=== PATIENT | female | born 1970 | race Asian ===

== ENCOUNTER 2021-07-31 10:03 | Emergency (ER) | payer MEDICAID ==
[~2021-07-31] VITALS: Ht 160 cm; Wt 59.0 kg
[2021-07-31 10:29] VITALS: BP_SYST 138
--- NOTE | 2021-07-31 10:29 | NUR ---
Placed in room 6 . Placed on monitor car operator, blood pressure machine and pulse oximeter. To gown for exam. Side rails up. Report given to JES MIRANDA.
--- NOTE | 2021-07-31 10:35 | NUR ---
PT BIB SON FROM HOME C/O ABDOMINAL PA. PAIN LEVEL 10. 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 PMH RECENT HEMMORRHOID SURGERY
--- NOTE | 2021-07-31 10:40 | NUR ---
ER at bedside examining patient.
[2021-07-31] MEDS ORDERED: ONDANSETRON HCL 4 MG/2 ML VIAL IVP ONE (10:45)
[2021-07-31] MEDS ORDERED: MORPHINE 4 MG INJ. 4 MG/ML VIAL IVP ONE (10:45)
[2021-07-31] MEDS ORDERED: NACL 0.9% 1,000 ML IV ONE (10:45)
--- NOTE | 2021-07-31 11:03 | NUR ---
Patient transported to radiology via GURNEY, accompanied by STAFF.
--- NOTE | 2021-07-31 11:14 | NUR ---
Blood for labwork drawn from [facility]. Patient tolerated WELL.
--- NOTE | 2021-07-31 11:15 | NUR ---
XRAY BARREL FINISHER WITH PATIENT TO LAB.
[2021-07-31 11:28] LABS: BASOPHILS % (AUTO) 0.2 % (0.0-2.0); EOSINOPHILS # (AUTO) 0.1 K/uL (0.0-0.4); EOSINOPHILS % (AUTO) 0.7 % (0.0-4.0); HEMATOCRIT 38.9 % (36-48); HEMOGLOBIN 12.7 g/dL (12.0-16.0); LYMPHOCYTES # (AUTO) 1.8 K/uL (1.0-5.5); LYMPHOCYTES % (AUTO) 21.5 % (20.5-51.5); MEAN CORPUSCULAR HEMOGLOBIN 31 pg (27-31); MEAN CORPUSCULAR HGB CONC 33 % (32-36); MEAN CORPUSCULAR VOLUME 95 fL (79.0-98.0); MONOCYTES # (AUTO) 0.4 K/uL (0.0-1.0); MONOCYTES % (AUTO) 4.8 % (1.7-9.3); NEUTROPHILS % (AUTO) 72.8 % (40.0-70.0); PLATELET COUNT (AUTO) 131 K/uL (130-430); RED BLOOD CELL COUNT(AUTO) 4.11 MIL/uL (4.2-6.2); RED CELL DISTRIBUTION WIDTH 13.5 % (9.0-15.0); WHITE BLOOD COUNT (AUTO) 8.2 K/uL (4.8-10.8)
[2021-07-31 11:47] LABS: CALCIUM 7.9 mg/dL (8.4-11.0); CREATININE 0.7 mg/dL (0.55-1.30); POTASSIUM 3.2 mmol/L (3.5-5.1)
--- NOTE | 2021-07-31 11:58 | NUR ---
pt comfortable no complaints vss. daughter at bedside.
[2021-07-31] MEDS ORDERED: POTASSIUM CHLORIDE 20 MEQ TAB.PRT.SR PO ONE (12:30)
[2021-07-31 12:49] LABS: ALBUMIN 3.1 g/dL (3.4-4.8); TOTAL BILIRUBIN 0.5 mg/dL (0.0-1.0)
[2021-07-31] MEDS ORDERED: DOCU-144 PO (13:07)
[2021-07-31] MEDS ORDERED: DICY10CA13 PO (13:07)
[2021-07-31 13:28] VITALS: BP_SYST 128
== END 2021-07-31 13:28 | disposition home or self-care (01) ==
LOC: SED 10:03
DX: R10.9 Unspecified abdominal pain (principal); Z88.6 Allergy status to analgesic agent
CPT/HCPCS: 36415; 74176; 76376; 80053; 83690; 85025; 96361; 96374; 96375; 99284; J2270; J2405; J7030

== ENCOUNTER 2022-03-02 19:53 | Emergency (ER) | payer MEDICAID ==
[~2022-03-02] VITALS: Ht 160 cm; Wt 60.8 kg
[~2022-03-02 19:53] MED LIST: DICY10CA13 PO; DOCU-144 PO
[2022-03-02 20:00] VITALS: BP_SYST 110
--- NOTE | 2022-03-02 21:16 | NUR ---
Patient to ER bed 06 to gown for evaluation. Side rails up.
--- NOTE | 2022-03-02 21:48 | NUR ---
PT BIB SON AWAKE AND ALERT AOX4. NO SOB. PT C/O HEADACHE SINCE YESTERDAY. PT DENIES N/V. PT STATES PAIN CAN BE 10/10.
--- NOTE | 2022-03-02 21:49 | NUR ---
MD DR TURNER AT BEDSIDE
[2022-03-02] MEDS ORDERED: DIPHENHYDRAMINE INJ 50 MG/ML VIAL IVP ONE (22:15)
[2022-03-02] MEDS ORDERED: KETOROLAC TROMETHAMINE 15 MG VIAL IVP ONE (22:15)
[2022-03-02] MEDS ORDERED: PROCHLORPERAZINE EDISYLATE 10 MG/2 ML VIAL IVP ONE (22:15)
--- NOTE | 2022-03-02 22:22 | NUR ---
REPORT GIVEN TO KASSI FRANCISCO. PT IN STABLE CONDITION VSS.
--- NOTE | 2022-03-02 22:47 | NUR ---
# 18 gauge angiocath placed to R AC. Use of asceptic technique. Opsite placed over site. Blood return noted. Flushed with 10 cc of normal saline. No evidence of infiltration noted. Patient tolerated well.
[2022-03-03 00:18] VITALS: BP_SYST 110
[2022-03-04] MEDS ORDERED: BENZ1LOZ73 PO (21:45)
[2022-03-04] MEDS ORDERED: BUTA1CAP43 PO (21:45)
== END 2022-03-03 00:18 | disposition home or self-care (01) ==
LOC: SED 19:53
DX: R51.9 Headache, unspecified (principal); E78.00 Pure hypercholesterolemia, unspecified; Z88.6 Allergy status to analgesic agent; Z79.899 Other long term (current) drug therapy
CPT/HCPCS: 99284; 96374; 96375; J1200; J1885; J0780

== ENCOUNTER 2022-03-04 17:54 | Emergency (ER) | payer MEDICAID ==
[~2022-03-04] VITALS: Ht 160 cm; Wt 61.7 kg
[2022-03-04 18:08] VITALS: BP_SYST 125
[2022-03-04] MEDS ORDERED: PROCHLORPERAZINE EDISYLATE 10 MG/2 ML VIAL IVP ONE (19:45)
[2022-03-04] MEDS ORDERED: DIPHENHYDRAMINE INJ 50 MG/ML VIAL IVP ONE (19:45)
[2022-03-04] MEDS ORDERED: NACL 0.9% 1,000 ML IV ONE (19:45)
[2022-03-04] MEDS ORDERED: KETOROLAC TROMETHAMINE 15 MG VIAL IVP ONE (19:45)
[2022-03-04 20:10] LABS: ANION GAP 8 (5-15); CALCIUM 8.9 mg/dL (8.4-11.0); CHLORIDE 103 mmol/L (98-107); GLUCOSE 108 mg/dL (70-99); UREA NITROGEN, BLOOD 10 mg/dL (8-21)
[2022-03-04 20:19] LABS: ALANINE AMINOTRANSFERASE 12 U/L (12-78); ALBUMIN 3.7 g/dL (3.4-4.8); ASPARTATE AMINOTRANSFERASE 24 U/L (10-37); TOTAL BILIRUBIN 0.4 mg/dL (0.0-1.0)
[2022-03-04 20:21] LABS: HEMOGLOBIN 13.3 g/dL (12.0-16.0); WHITE BLOOD COUNT (AUTO) 4.3 K/uL (4.8-10.8)
[2022-03-04 20:25] LABS: GFR AFRICAN AMERICAN 113 mL/min (>90)
[2022-03-04 20:28] LABS: BASOPHILS % (AUTO) 0.4 % (0.0-2.0); HEMATOCRIT 38.4 % (36-48); LYMPHOCYTES # (AUTO) 1.5 K/uL (1.0-5.5); LYMPHOCYTES % (AUTO) 34.7 % (20.5-51.5); MEAN CORPUSCULAR HEMOGLOBIN 32 pg (27-31); MEAN CORPUSCULAR HGB CONC 35 % (32-36); MEAN CORPUSCULAR VOLUME 93 fL (79.0-98.0); MONOCYTES # (AUTO) 0.4 K/uL (0.0-1.0); MONOCYTES % (AUTO) 9.7 % (1.7-9.3); NEUTROPHILS # (AUTO) 2.4 K/uL (1.8-7.7); NEUTROPHILS % (AUTO) 55.2 % (40.0-70.0); PLATELET COUNT (AUTO) 114 K/uL (130-430); RED BLOOD CELL COUNT(AUTO) 4.15 MIL/uL (4.2-6.2); RED CELL DISTRIBUTION WIDTH 13.3 % (9.0-15.0)
[2022-03-04] MEDS ORDERED: BUTA1CAP43 PO (21:45)
[2022-03-04] MEDS ORDERED: BENZ1LOZ73 PO (21:45)
[2022-03-04 22:34] VITALS: BP_SYST 112
== END 2022-03-04 22:34 | disposition home or self-care (01) ==
LOC: SED 17:54
DX: U07.1 COVID-19 (principal); G43.909 Migraine, unspecified, not intractable, without status migrainosus; R05.9 Cough, unspecified; R06.02 Shortness of breath; E78.00 Pure hypercholesterolemia, unspecified; Z88.6 Allergy status to analgesic agent; Z79.899 Other long term (current) drug therapy
CPT/HCPCS: 99285; 96374; 70450; 71045; 96375; 96361; 87426; 80053; 85025; 84484; 36415; 93005; 76376; J1200; J1885; J0780; J7030

== ENCOUNTER 2023-05-08 09:24 | Emergency (ER) | payer MEDICAID ==
[~2023-05-08] VITALS: Ht 160 cm; Wt 62.6 kg
[~2023-05-08 09:24] MED LIST changes: +BENZ1LOZ73 PO; +BUTA1CAP43 PO; +DICY-14 PO; -DICY10CA13 PO
[2023-05-08 09:30] VITALS: BP_SYST 126; PULSE 66; RESP 19; TEMP 97.7; O2SAT 100
[2023-05-08] MEDS ORDERED: KETOROLAC TROMETHAMINE 15 MG VIAL IVP ONE (10:30)
[2023-05-08] MEDS ORDERED: DIPHENHYDRAMINE INJ 50 MG/ML VIAL IVP ONE (10:30)
[2023-05-08] MEDS ORDERED: PROCHLORPERAZINE EDISYLATE 10 MG/2 ML VIAL IVP ONE (10:30)
[2023-05-08 11:14] LABS: BASOPHILS % (AUTO) 0.3 % (0.0-2.0); EOSINOPHILS % (AUTO) 0.7 % (0.0-4.0); HEMATOCRIT 38.6 % (36-48); HEMOGLOBIN 13.1 g/dL (12.0-16.0); LYMPHOCYTES # (AUTO) 2.2 K/uL (1.0-5.5); LYMPHOCYTES % (AUTO) 48.7 % (20.5-51.5); MEAN CORPUSCULAR HEMOGLOBIN 33 pg (27-31); MEAN CORPUSCULAR HGB CONC 34 % (32-36); MEAN CORPUSCULAR VOLUME 95 fL (79.0-98.0); MONOCYTES # (AUTO) 0.3 K/uL (0.0-1.0); MONOCYTES % (AUTO) 5.9 % (1.7-9.3); NEUTROPHILS % (AUTO) 44.4 % (40.0-70.0); PLATELET COUNT (AUTO) 195 K/uL (130-430); RED BLOOD CELL COUNT(AUTO) 4.05 MIL/uL (4.2-6.2); RED CELL DISTRIBUTION WIDTH 14.1 % (9.0-15.0); WHITE BLOOD COUNT (AUTO) 4.4 K/uL (4.8-10.8)
[2023-05-08 11:24] LABS: CALCIUM 8.8 mg/dL (8.4-11.0); CREATININE 0.65 mg/dL (0.55-1.30); POTASSIUM 3.7 mmol/L (3.5-5.1)
[2023-05-08 11:25] LABS: PROTHROMBIN TIME 10.1 SECS (9.5-12.5)
[2023-05-08] MEDS ORDERED: iohexoL 350 mgI/mL, 100 ML INFUS..BTL IV ONE (12:07)
[2023-05-08] MEDS ORDERED: [UNRECOGNIZED DRUG - CODE] PO (13:47)
[2023-05-08] MEDS ORDERED: NAPR-690 PO (13:47)
[2023-05-08 14:06] VITALS: BP_SYST 119; PULSE 91; RESP 16; TEMP 97.6; O2SAT 97
== END 2023-05-08 14:06 | disposition home or self-care (01) ==
LOC: SED 09:24
DX: G93.5 Compression of brain (principal); G89.29 Other chronic pain; R51.9 Headache, unspecified; E78.00 Pure hypercholesterolemia, unspecified; Z88.6 Allergy status to analgesic agent; Z79.899 Other long term (current) drug therapy
CPT/HCPCS: 99285; 70496; 96374; 96375; 80048; 85025; 85610; 36415; 70498; 81025; 70450; 76376; Q9967; J1200; J1885; J0780

== ENCOUNTER 2024-02-05 21:24 | Emergency (ER) | payer MEDICAID ==
[~2024-02-05] VITALS: Ht 160 cm; Wt 61.2 kg
[~2024-02-05 21:24] MED LIST changes: +NAPR-690 PO; +[UNRECOGNIZED DRUG - CODE] PO
[2024-02-05 21:28] VITALS: BP_SYST 104; PULSE 70; RESP 17; TEMP 97.8; O2SAT 99
[2024-02-05 22:07] LABS: RED CELL DISTRIBUTION WIDTH 13.8 % (9.0-15.0); WHITE BLOOD COUNT (AUTO) 4.4 K/uL (4.8-10.8)
[2024-02-05 22:12] LABS: BASOPHILS % (AUTO) 0.4 % (0.0-2.0); EOSINOPHILS # (AUTO) 0.1 K/uL (0.0-0.4); EOSINOPHILS % (AUTO) 1.2 % (0.0-4.0); HEMATOCRIT 39.7 % (36-48); HEMOGLOBIN 13.6 g/dL (12.0-16.0); LYMPHOCYTES # (AUTO) 2.4 K/uL (1.0-5.5); LYMPHOCYTES % (AUTO) 54.4 % (20.5-51.5); MEAN CORPUSCULAR HEMOGLOBIN 32 pg (27-31); MEAN CORPUSCULAR HGB CONC 34 % (32-36); MEAN CORPUSCULAR VOLUME 94 fL (79.0-98.0); MONOCYTES # (AUTO) 0.2 K/uL (0.0-1.0); MONOCYTES % (AUTO) 5.4 % (1.7-9.3); NEUTROPHILS # (AUTO) 1.7 K/uL (1.8-7.7); NEUTROPHILS % (AUTO) 38.6 % (40.0-70.0); PLATELET COUNT (AUTO) 181 K/uL (130-430); RED BLOOD CELL COUNT(AUTO) 4.22 MIL/uL (4.2-6.2)
[2024-02-05 22:21] LABS: ALBUMIN 3.9 g/dL (3.4-4.8); CALCIUM 8.9 mg/dL (8.4-11.0); CREATININE 0.69 mg/dL (0.55-1.30); POTASSIUM 3.9 mmol/L (3.5-5.1); TOTAL BILIRUBIN 0.5 mg/dL (0.0-1.0); TOTAL PROTEIN, SERUM 7.4 g/dL (6.4-8.3)
[2024-02-06 00:18] LABS: BILIRUBIN,URINE NEGATIVE (NEGATIVE); BLOOD, URINE NEGATIVE (NEGATIVE); COLOR,URINE YELLOW (YELLOW); GLUCOSE,URINE NEGATIVE (NEGATIVE); KETONES,URINE NEGATIVE (NEGATIVE); LEUKOCYTE ESTERASE ,URINE TRACE (NEGATIVE); NITRITE, URINE NEGATIVE (NEGATIVE); PROTEIN URINE NEGATIVE (NEGATIVE); UROBILINOGEN,URINE 0.2 (0.2-1.0)
[2024-02-06 00:28] LABS: CLARITY/URINE HAZY (CLEAR)
[2024-02-06 00:31] LABS: RBC,URINE 0-3 /HPF (0-3)
[2024-02-06 00:32] LABS: BACTERIA,URINE FEW /HPF (None Seen)
[2024-02-06] MEDS ORDERED: NITR-85 PO (00:42)
[2024-02-06] MEDS ORDERED: TRAM50TA2 PO (00:42)
[2024-02-06 00:57] VITALS: BP_SYST 105; PULSE 66; RESP 16; TEMP 97.2; O2SAT 97
== END 2024-02-06 00:55 | disposition home or self-care (01) ==
LOC: SED 21:24
DX: N39.0 Urinary tract infection, site not specified (principal); R10.11 Right upper quadrant pain; Z88.0 Allergy status to penicillin; Z88.6 Allergy status to analgesic agent
CPT/HCPCS: 36415; 76705; 80053; 81000; 81001; 81015; 83690; 85025; 87086; 99284